=== PATIENT | female | born 1990 | race Caucasian/White ===

== ENCOUNTER 2017-01-21 03:19 | Inpatient (IN) | payer OTHER ==
[~2017-01-21] VITALS: Ht 157.5 cm; Wt 94.3 kg
[2017-01-21 04:48] VITALS: BP 130/78
[2017-01-21] MEDS ORDERED: PRENATAL TABLE1 EAC2 PO (08:51)
[2017-01-21 08:57] LABS: ABSOLUTE BASOPHIL COUNT 0 /CUMM (0.0-0.2); ABSOLUTE EOSINOPHIL COUNT 0 /CUMM (0.0-0.7); ABSOLUTE GRANULOCYTE CT 23.4 /CUMM (1.4-6.5); ABSOLUTE LYMPH COUNT 2.2 /CUMM (1.2-3.4); ABSOLUTE MONOCYTE COUNT 0.5 /CUMM (0.10-0.60); BASOPHIL % 0 % (0.0-2.0); EOSINOPHIL % 0 % (0-5); HEMATOCRIT 41.7 % (37-47); MEAN CORPUSCULAR HGB 29.4 PG (27.0-31.0); MEAN CORPUSCULAR HGB CONC 33.7 G/DL (33.0-37.0); MEAN CORPUSCULAR VOLUME 87.3 FL (81.0-99.0); PLATELET COUNT 290 /CUMM (130-400); RBC DISTRIBUTION WIDTH 14.4 % (11.5-14.5); RED BLOOD CELL CT 4.78 /CUMM (4.20-5.40); WHITE BLOOD CELL COUNT 26.1 /CUMM (4.8-10.8)
[2017-01-21 09:11] LABS: GRANULOCYTE % 89.4 % (42.2-75.2)
--- NOTE | 2017-01-21 09:12 | History & Physical ---
General Information and HPI MD Statement: I have seen and personally examined ARY ROLADN and documented this H&P. The patient is a 27 year old female at [39] weeks and [1] days gestation who presented with a chief complaint of [LABOR]. Source of Information: patient Exam Limitations: no limitations History of Present Illness: 27yo, 39 1/7wks, she c/o ctxs started yesterday,getting stronger , came in this AM for evaluation, she was 2cm dilated, she was given morphine for theraputic rest. she was found to be 9 cm dilated around 8:30AM. care started at 15wks. uncomplicated thus far. 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 Home Who Do You Live With? spouse Primary Language: Romansh Smoking Status: Former Smoker ETOH Use: denies use Illicit Drug Use: denies illicit drug use Living Will? unknown Review of Systems Review of Systems Constitutional: Reports: no symptoms. EENTM: Reports: no symptoms. Cardiovascular: Reports: no symptoms. Respiratory: Reports: no symptoms. GI: Reports: no symptoms. Genitourinary: Reports: see HPI. Musculoskeletal: Reports: no symptoms. Skin: Reports: no symptoms. Neurological/Psychological: Reports: no symptoms. Hematologic/Endocrine: Reports: no symptoms. Immunologic/Allergic: Reports: no symptoms. All Other Systems: Reviewed and Negative Post Menopausal: No Exam & Diagnostic Data Last 24 Hrs of Vital Signs/I&O Vital Signs Date Time Temp Pulse Resp B/P Pulse O2 O2 Flow FiO2 Ox Delivery Rate 01/21 0448 130/78 Intake & Output 01/21 1600 01/21 0800 01/21 0000 Intake Total Output Total Balance Patient 94.347 kg Weight Obstetric Exam Wgt Gained During : 44lbs Pelvimetry: adequate Dilation (cm): 9 Effacement (%): 100 Station: 0 Membranes: SROM Fluid: clear Fundal Height (cm): 39 Multiple Gestation? No Contractions: q 2-4 min #1 - FHR Baseline: 130 Category: 1 Estimated Weight: 3500g Presentation: vertex Patient for Induction? No Physical Exam: VSS General: NAD Abdomen: gravid, soft, nontender. Ext: DCT (-) Labs Blood Type & Rh: A positive Antibody Screen: negative Hct/Hgb & Platelets #1: 13.5/42.5%,[id number] Hct/Hgb & Platelets #2: 12.7/40.8%,[id number] Rubella: immune VDRL #1: negative VDRL #2: negative HbsAg: negative HIV #1: negative HIV #2 negative 1 Hr P Group B Strep: positive Initial Ultrasound: IUP at 15 4/7wks Anatomy Ultrasound: normal Genetic Testing: none Last 24 Hrs of Labs/Joseph: Laboratory Tests 01/21/17 0840: CBC w Diff NO MAN DIFF REQ, RBC 4.78, MCV 87.3, MCH 29.4, RDW 14.4, MPV 10.0, Gran % 89.4 H, Lymphocytes % 8.5 L, Monocytes % 2.1, Eosinophils % 0, Basophils % 0 L, Absolute Granulocytes 23.4 H, Absolute Lymphocytes 2.2, Absolute Monocytes 0.5, Absolute Eosinophils 0, Absolute Basophils 0, PUBS MCHC 33.7, Urine Color Pending, Urine Clarity Pending, Urine pH Pending, Ur Specific [place] Pending, Urine Protein Pending, Urine Ketones Pending, Urine Nitrite Pending, Urine Bilirubin Pending, Urine Urobilinogen Pending, Ur Leukocyte Esterase Pending, Ur Microscopic SEDIMENT EXAMINED, Urine RBC Pending, Urine Hemoglobin Pending, Urine Glucose Pending Assessment/Plan Assessment/Plan: 27yo, 39 1/7wks, labor 1. admit pt, admission labs 2. antibiotics for GBS prophylaxis 3. will monitor closely As Ranked By This Provider Problem List: 1. Core Measures/Miscellaneous Venous Thromboembolism VTE Risk Factors: / VTE Contraindications: No Contraindications VTE Diagnosis: No Beta Gurpreet Is Beta Gurpreet a Home Med? No Antibiotics Is Patient on Antibiotics? No Attending MD Review Statement Attending Statement Attending MD Statement: examined this patient, discussed with family, discussed w/nursing
--- NOTE | 2017-01-21 11:37 | Labor & Delivery Summary ---
Delivery Summary Vaginal Delivery: Vaginal: spontaneous Episiotomy/Lacerations: Episiotomy/Lacerations: 2ND DEGREE, SUPERFICIAL LABIA Type: 2ND DEGREE Repair: 3-0 VICRYL Anesthesia: LOCAL Placenta: Placenta: spontanteous, normal, 3 vessel Anesthesia: LOCAL Baby's Weight: 8LB3OZ Apgars - 1 Min: 9 Apgars - 5 Min: 9 Additional Comments: Patient fully dilated, pushed well, spontaneous delivered a female at cephalic presentation, JOSE position, head delivered atraumatically, followed by shoulders and rest of the body, vigorous and cried, place on mother's chest for skin to skin contact, nose and mouth was suctioned with suction bulb, cord clamped and cut. Placenta delivered spontaneously, intact, three-vessel cord. Small second-degree laceration repaired with 2-0 Vicryl in a running locked fashion, hemostasis achieved. Superficial bilateral labia laceration noted, no active bleeding. Patient tolerated the procedure well, lap and needle counts were correct. She is in recovery room in stable condition.
--- NOTE | 2017-01-22 09:04 | PN- OBGYN ---
Surgical Brief Attending Note Brief Attending Note: pt is resting in bed, no complaints. tolerate diet, void without difficulties, ambulating well PE: VSS CV RRR lungs CTA B/L Abdomen: soft, nontender, uterus firm, fundus below umbilicus. lochia mild Ext: DCT(-) A/P: 27yo, s/p , PPD #1 1. encourage ambulation, encourage 2. pain management as needed 3. RT PP care
[2017-01-22 09:39] LABS: ABSOLUTE BASOPHIL COUNT 0.1 /CUMM (0.0-0.2); ABSOLUTE EOSINOPHIL COUNT 0.1 /CUMM (0.0-0.7); ABSOLUTE GRANULOCYTE CT 22.5 /CUMM (1.4-6.5); ABSOLUTE LYMPH COUNT 5.3 /CUMM (1.2-3.4); ABSOLUTE MONOCYTE COUNT 1.7 /CUMM (0.10-0.60); BASOPHIL % 0.4 % (0.0-2.0); EOSINOPHIL % 0.3 % (0-5); GRANULOCYTE % 75.7 % (42.2-75.2); MEAN CORPUSCULAR HGB 29.4 PG (27.0-31.0); MEAN CORPUSCULAR HGB CONC 33.5 G/DL (33.0-37.0); MEAN CORPUSCULAR VOLUME 87.9 FL (81.0-99.0); MEAN PLATELET VOLUME 10.8 FL (7.4-10.4); PLATELET COUNT 286 /CUMM (130-400); RBC DISTRIBUTION WIDTH 14.9 % (11.5-14.5); RED BLOOD CELL CT 3.98 /CUMM (4.20-5.40); WHITE BLOOD CELL COUNT 29.7 /CUMM (4.8-10.8)
[2017-01-23] MEDS ORDERED: IBUPROFEN800 M1 PO (08:50)
--- NOTE | 2017-01-23 09:07 | PN- OBGYN ---
Surgical Brief Attending Note Brief Attending Note: PPD#2 pt is ambulating, no complaints PE: VSS CV RRR lungs CTA B/L Abdomen: soft, nontender, uterus firm, fundus below umbilicus. lochia mild Ext: DCT (-) A/P:27yo, s/p , PPD #2 1. encourage ambulation and 2.pain management as needed 3.will d/c home, f/u in office 2 wks and 6wks.
== END 2017-01-23 12:54 | DRG 560 ==
LOC: CBCO 03:19 → GNO 04:30
PROVIDERS: Obstetrics & Gynecology; ADMIT Obstetrics & Gynecology
DX: O70.1 Second degree perineal laceration during delivery (principal); O99.824 Streptococcus B carrier state complicating childbirth; Z3A.39 39 weeks gestation of pregnancy; Z37.0 Single live birth; Z87.891 Personal history of nicotine dependence
CPT/HCPCS: GNOS; 36415; 81001; 96360; 96372; G0378; G0463; J0595; J1885; J2270; J7120

== ENCOUNTER 2018-05-08 06:43 | Inpatient (IN) | payer OTHER ==
[~2018-05-08] VITALS: Ht 157.5 cm; Wt 135.6 kg
[~2018-05-08 06:43] MED LIST: IBUPROFEN800 M1 PO; PRENATAL TABLE1 EAC2 PO
[2018-05-08 07:42] VITALS: BP 137/77
[2018-05-08 08:53] LABS: ABSOLUTE BASOPHIL COUNT 0.1 /CUMM (0.0-0.2); ABSOLUTE EOSINOPHIL COUNT 0.1 /CUMM (0.0-0.7); ABSOLUTE GRANULOCYTE CT 12.7 /CUMM (1.4-6.5); ABSOLUTE LYMPH COUNT 3.1 /CUMM (1.2-3.4); ABSOLUTE MONOCYTE COUNT 0.9 /CUMM (0.10-0.60); BASOPHIL % 0.4 % (0.0-2.0); EOSINOPHIL % 0.4 % (0-5); GRANULOCYTE % 75.2 % (42.2-75.2); HEMATOCRIT 41.6 % (37-47); MEAN CORPUSCULAR HGB 29.8 PG (27.0-31.0); MEAN CORPUSCULAR VOLUME 87.5 FL (81.0-99.0); MEAN PLATELET VOLUME 10.5 FL (7.4-10.4); PLATELET COUNT 286 /CUMM (130-400); RBC DISTRIBUTION WIDTH 14.3 % (11.5-14.5); RED BLOOD CELL CT 4.75 /CUMM (4.20-5.40); WHITE BLOOD CELL COUNT 16.9 /CUMM (4.8-10.8)
--- NOTE | 2018-05-08 11:05 | History & Physical ---
General Information and HPI MD Statement: I have seen and personally examined ARY ROLDAN and documented this H&P. The patient is a 28 year old female at 39 weeks and 4 days gestation who presented with a chief complaint of LABOR PAINS. Source of Information: patient, old records Exam Limitations: no limitations History of Present Illness: PT has been having painfull contractions since this AM no ROM +FM no VB. 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 spouse Primary Language: Australian Smoking Status: Former Smoker Living Will? unknown Review of Systems Review of Systems Constitutional: Reports: no symptoms. EENTM: Denies: blurred vision, double vision, visual changes. Cardiovascular: Denies: chest pain. Respiratory: Denies: short of breath. GI: Denies: nausea, vomiting. Neurological/Psychological: Denies: anxiety, depressed. Exam & Diagnostic Data Last 24 Hrs of Vital Signs/I&O vss Vital Signs Date Time Temp Pulse Resp B/P B/P Pulse O2 O2 Flow FiO2 Mean Ox Delivery Rate 05/08 0742 137/77 Intake & Output 05/08 1600 05/08 0800 05/08 0000 Intake Total Output Total Balance Patient 299 lb Weight Obstetric Exam Wgt Gained During : 60# Pelvimetry: tested to 8# 2 oz Dilation (cm): 4 Effacement (%): 50 Station: -2 Membranes: intact Fluid: unknown Fundal Height (cm): 40 Multiple Gestation? No Contractions: Q3 hours Infant #1 - FHR Baseline: 144 Category: 1 Estimated Weight: 3800G Presentation: vtx Patient for Induction? No Physical Exam General Appearance Alert, Oriented X3, Cooperative, Moderate Distress Skin No Rashes HEENT Atraumatic Neck Supple Cardiovascular Regular Rate Lungs Clear to Auscultation Abdomen Soft Neurological Normal Gait, Normal Speech, Strength at 5/5 X4 Ext, Normal Tone Labs Blood Type & Rh: A pos Antibody Screen: neg Hct/Hgb & Platelets #1: 38.6/12.2/271 Hct/Hgb & Platelets #2: 39.8/12.9/271 Rubella: imm VDRL #1: nr VDRL #2: nr HbsAg: neg HIV #1: nr HIV #2 nr 1 Hr P Group B Strep: neg Initial Ultrasound: late entry to PNC Anatomy Ultrasound: 01/31/18 [facility] Normal Ultrasound for EFW: 04/24/18 59%tile Genetic Testing: too late Last 24 Hrs of Labs/Joseph: Laboratory Tests 05/08/18 0750: CBC w Diff NO MAN DIFF REQ, RBC 4.75, MCV 87.5, MCH 29.8, MCHC 34.0, RDW 14.3, MPV 10.5 H, Gran % 75.2, Lymphocytes % 18.4 L, Monocytes % 5.6, Eosinophils % 0.4, Basophils % 0.4, Absolute Granulocytes 12.7 H, Absolute Lymphocytes 3.1, Absolute Monocytes 0.9 H, Absolute Eosinophils 0.1, Absolute Basophils 0.1 05/08/18 0740: Urinalysis LIGHT H, Urine Color YEL, Urine Clarity HAZY H, Urine pH 7.5, Ur Specific [place] 1.020, Urine Protein NEG, Urine Ketones NEG, Urine Nitrite NEG, Urine Bilirubin NEG, Urine Urobilinogen 0.2, Ur Leukocyte Esterase NEG, Ur Microscopic SEDIMENT EXAMINED, Urine RBC 1-3, Urine WBC RARE, Ur Epithelial Cells FEW, Urine Bacteria FEW H, Urine Hemoglobin NEG, Urine Glucose NEG Assessment/Plan Assessment/Plan: Late PNC Multip in labor GBS negative Plan expectant management As Ranked By This Provider Problem List: 1. Core Measures Venous Thromboembolism VTE Risk Factors / No Mechanical VTE Prophylaxis d/t LowRisk-No Interven Req'd No VTE Pharm Prophylaxis d/t LowRisk-No Interven Req'd
--- NOTE | 2018-05-08 15:37 | Labor & Delivery Summary ---
Delivery Summary Vaginal Delivery: Vaginal: spontaneous Episiotomy/Lacerations: Episiotomy/Lacerations: none Type: intact Placenta: Placenta: spontanteous, normal, 3 vessel, nuchal cord (x_) (1) Apgars - 1 Min: 9 Apgars - 5 Min: 9 Additional Comments: pt became fully dilated then refused to push for a while 20 minutes finally she delivered the baby with one push, loose nuchal cord , clear fluid, perinum seems intact no bleeding. Placenta delivered intact
[2018-05-09 07:50] LABS: ABSOLUTE BASOPHIL COUNT 0.1 /CUMM (0.0-0.2); ABSOLUTE EOSINOPHIL COUNT 0.1 /CUMM (0.0-0.7); ABSOLUTE GRANULOCYTE CT 18.5 /CUMM (1.4-6.5); ABSOLUTE LYMPH COUNT 3.6 /CUMM (1.2-3.4); ABSOLUTE MONOCYTE COUNT 1.4 /CUMM (0.10-0.60); BASOPHIL % 0.3 % (0.0-2.0); EOSINOPHIL % 0.2 % (0-5); GRANULOCYTE % 78.3 % (42.2-75.2); HEMATOCRIT 40.3 % (37-47); MEAN CORPUSCULAR HGB 29.3 PG (27.0-31.0); MEAN CORPUSCULAR HGB CONC 33.5 G/DL (33.0-37.0); MEAN CORPUSCULAR VOLUME 87.4 FL (81.0-99.0); MEAN PLATELET VOLUME 10.4 FL (7.4-10.4); PLATELET COUNT 306 /CUMM (130-400); RBC DISTRIBUTION WIDTH 14.2 % (11.5-14.5); RED BLOOD CELL CT 4.61 /CUMM (4.20-5.40)
[2018-05-09 08:49] LABS: WHITE BLOOD CELL COUNT 23.6 /CUMM (4.8-10.8)
--- NOTE | 2018-05-09 15:51 | PN- OBGYN ---
Surgical Brief Attending Note Brief Attending Note: pt feeling well. amb / void / marie po. +bf. cramping well controlled w/ motrin. afeb, v/ss nad abd sof holger ff reagan mod lochia ext nt no ed wbc 16 -->23 hct 41--> 40 a/p ppd 1 s/p , doing well leukocytosis but no s/sx infection -rpt cbc in am -routine pp care
[2018-05-10 05:41] LABS: ABSOLUTE BASOPHIL COUNT 0.1 /CUMM (0.0-0.2); ABSOLUTE EOSINOPHIL COUNT 0.3 /CUMM (0.0-0.7); ABSOLUTE GRANULOCYTE CT 8.3 /CUMM (1.4-6.5); ABSOLUTE LYMPH COUNT 5.1 /CUMM (1.2-3.4); ABSOLUTE MONOCYTE COUNT 0.9 /CUMM (0.10-0.60); BASOPHIL % 0.5 % (0.0-2.0); EOSINOPHIL % 1.9 % (0-5); GRANULOCYTE % 56.4 % (42.2-75.2); HEMATOCRIT 37.3 % (37-47); MEAN CORPUSCULAR HGB 29.4 PG (27.0-31.0); MEAN CORPUSCULAR HGB CONC 33.8 G/DL (33.0-37.0); MEAN PLATELET VOLUME 9.7 FL (7.4-10.4); PLATELET COUNT 308 /CUMM (130-400); RBC DISTRIBUTION WIDTH 14.2 % (11.5-14.5); RED BLOOD CELL CT 4.29 /CUMM (4.20-5.40); WHITE BLOOD CELL COUNT 14.6 /CUMM (4.8-10.8)
[2018-05-10] MEDS ORDERED: IBUPROFEN800 M1 PO (09:30)
--- NOTE | 2018-05-10 09:59 | PN- OBGYN ---
Surgical Brief Attending Note Brief Attending Note: PPD#2 pt is ambulating, doing well, no complaints PE: VSS CV RRR Lungs CTA B/L Abdomen: soft, nontender, uterus firm, fundus below umbilicus. lochia mild Ext: DCT (-) A/P: 28 yo, s/p ,PPD#2 1. encourage ambulation and 2. RT PP care 3. will d/c home, f/u in office in 2wks and 6 wks, discharge instructions given, she understand.
== END 2018-05-10 11:40 | DRG 560 ==
LOC: CBCO 06:43 → GNO 07:27
PROVIDERS: Obstetrics & Gynecology
PROC: 10E0XZZ Delivery of Products of Conception, External Approach (ICD-10-PCS; principal; 2018-05-08)
DX: O80 Encounter for full-term uncomplicated delivery (principal); Z3A.39 39 weeks gestation of pregnancy; Z37.0 Single live birth
CPT/HCPCS: GNOS; 81001; J1885; J7120